=== PATIENT | male | born 1940 | race Caucasian/White ===

== ENCOUNTER 2017-09-25 12:57 | Outpatient (CLI) | payer OTHER ==
[~2017-09-25 12:57] MED LIST: CRESTOR10 MG
== END 2017-09-25 13:04 | disposition home or self-care (01) ==
LOC: MAMO-SONO 12:57 → EDBD 12:57 → MAMO-SONO 13:04
DX: N62 Hypertrophy of breast (principal)

== ENCOUNTER 2018-01-29 12:14 | Emergency (ER) | payer OTHER ==
[~2018-01-29] VITALS: Ht 185.4 cm; Wt 93.0 kg
== END 2018-01-29 14:50 | disposition home or self-care (01) ==
LOC: ER 12:14
DX: B34.9 Viral infection, unspecified (principal); J11.1 Influenza due to unidentified influenza virus with other respiratory manifestations

== ENCOUNTER 2018-10-30 12:40 | Outpatient (CLI) | payer OTHER | END 2018-10-30 12:55 | disposition home or self-care (01) | LOC: SONOGRAMA 12:40 → MAMO-SONO 13:15 | DX: N40.1 Benign prostatic hyperplasia with lower urinary tract symptoms (principal); R97.20 Elevated prostate specific antigen [PSA] ==

== ENCOUNTER 2019-02-25 06:27 | Day surgery (SDC) | payer OTHER | END 2019-02-25 12:40 | disposition home or self-care (01) | LOC: AMB-ENDOS 06:27 | DX: D12.3 Benign neoplasm of transverse colon (principal); K64.4 Residual hemorrhoidal skin tags ==

== ENCOUNTER 2019-03-18 07:13 | Outpatient (CLI) | payer OTHER | END 2019-03-18 07:21 | disposition home or self-care (01) | LOC: NUCLEAR 07:13 | DX: K81.0 Acute cholecystitis (principal) | CPT/HCPCS: 78227; A9537 ==

== ENCOUNTER 2019-10-25 13:11 | Emergency (ER) | payer OTHER ==
[~2019-10-25] VITALS: Ht 182.9 cm; Wt 93.0 kg
[2019-10-25] MEDS ORDERED: CIALIS5 MG (13:14)
[2019-10-25] MEDS ORDERED: CRESTOR5 MG (13:14)
== END 2019-10-25 16:18 | disposition home or self-care (01) ==
LOC: ER 13:11
DX: N39.0 Urinary tract infection, site not specified (principal); B95.4 Other streptococcus as the cause of diseases classified elsewhere; R31.0 Gross hematuria; Z03.818 Encounter for observation for suspected exposure to other biological agents ruled out; R53.81 Other malaise; R97.20 Elevated prostate specific antigen [PSA]

== ENCOUNTER 2019-11-16 09:45 | Outpatient (CLI) | payer OTHER ==
[~2019-11-16 09:45] MED LIST changes: +CIALIS5 MG; +CRESTOR5 MG
== END 2019-11-16 10:10 | disposition home or self-care (01) ==
LOC: NUCLEAR 09:45
PROVIDERS: ATTEND Urology
DX: C61 Malignant neoplasm of prostate (principal); R31.0 Gross hematuria
CPT/HCPCS: 78306; A9503

== ENCOUNTER 2020-05-17 11:58 | Outpatient (CLI) | payer OTHER | END 2020-05-17 12:03 | disposition home or self-care (01) | LOC: LAB 11:58 | PROVIDERS: ATTEND Urology | DX: R97.20 Elevated prostate specific antigen [PSA] (principal) ==

== ENCOUNTER 2020-05-24 07:27 | Outpatient (CLI) | payer OTHER | END 2020-05-24 07:40 | disposition home or self-care (01) | LOC: SONOGRAMA 07:27 | PROVIDERS: ATTEND Urology | DX: C61 Malignant neoplasm of prostate (principal); D29.1 Benign neoplasm of prostate; R97.20 Elevated prostate specific antigen [PSA] ==

== ENCOUNTER 2021-05-03 08:14 | Outpatient (CLI) | payer OTHER | END 2021-05-03 08:30 | disposition home or self-care (01) | LOC: NUCLEAR 08:14 | PROVIDERS: ATTEND Urology | DX: R31.0 Gross hematuria (principal); C61 Malignant neoplasm of prostate | CPT/HCPCS: 78803; A9503 ==

== ENCOUNTER 2021-10-18 12:12 | Outpatient (CLI) | payer OTHER | END 2021-10-18 12:13 | disposition home or self-care (01) | LOC: LAB 12:12 | PROVIDERS: ATTEND Surgery | DX: Z01.810 Encounter for preprocedural cardiovascular examination (principal); N48.6 Induration penis plastica ==

== ENCOUNTER 2021-10-30 06:00 | Day surgery (SDC) | payer OTHER ==
[~2021-10-30] VITALS: Ht 182.9 cm; Wt 88.0 kg
[2021-10-30] MEDS ORDERED: ULTRAM50 MG PO (10:02)
== END 2021-10-30 12:10 | disposition home or self-care (01) ==
LOC: CIR.AMB 06:00
PROVIDERS: ATTEND Surgery
DX: N48.6 Induration penis plastica (principal); Z20.822 Contact with and (suspected) exposure to COVID-19; Z88.0 Allergy status to penicillin

== ENCOUNTER 2022-01-01 09:53 | Emergency (ER) | payer OTHER ==
[~2022-01-01] VITALS: Ht 182.9 cm; Wt 84.4 kg
[~2022-01-01 09:53] MED LIST changes: +ULTRAM50 MG PO
[2022-01-01] MEDS ORDERED: CIALIS2.5 MG PO (10:00)
== END 2022-01-01 13:59 | disposition home or self-care (01) ==
LOC: ER 09:53
DX: R10.9 Unspecified abdominal pain (principal); N21.0 Calculus in bladder; Z88.0 Allergy status to penicillin

== ENCOUNTER 2022-04-03 09:19 | Emergency (ER) | payer OTHER ==
[~2022-04-03] VITALS: Ht 185.4 cm; Wt 86.2 kg
[~2022-04-03 09:19] MED LIST changes: +CIALIS2.5 MG PO
[2022-04-03] MEDS ORDERED: LEVOFLOXACIN500 MG PO (11:08)
[2022-04-03] MEDS ORDERED: TYLENOL325 MG PO (11:16)
== END 2022-04-03 11:16 | disposition home or self-care (01) ==
LOC: ER 09:19
DX: N39.0 Urinary tract infection, site not specified (principal); Z85.46 Personal history of malignant neoplasm of prostate; R31.9 Hematuria, unspecified; Z88.6 Allergy status to analgesic agent

== ENCOUNTER 2023-04-14 07:40 | Outpatient (CLI) | payer OTHER ==
[~2023-04-14 07:40] MED LIST changes: +LEVOFLOXACIN500 MG PO; +TYLENOL325 MG PO
== END 2023-04-14 08:10 | disposition home or self-care (01) ==
LOC: RAD 07:40
PROVIDERS: ATTEND Internal Medicine Gastroenterology
DX: K21.9 Gastro-esophageal reflux disease without esophagitis (principal); R10.13 Epigastric pain